=== PATIENT | female | born 1955 | race Asian ===

== ENCOUNTER 2024-03-23 14:45 | Emergency (ER) | payer BC ==
[~2024-03-23] VITALS: Ht 152.4 cm; Wt 48.5 kg
[2024-03-23 14:58] VITALS: BP 141/59; PULSE 60; RESP 18; TEMP 98.5; O2SAT 98
[2024-03-23 16:45] VITALS: BP 135/82; PULSE 66; RESP 16; TEMP 98; O2SAT 99
== END 2024-03-23 16:45 | disposition home or self-care (01) ==
LOC: MED 14:45
DX: S00.03XA Contusion of scalp, initial encounter (principal); W18.39XA Other fall on same level, initial encounter; Y93.89 Activity, other specified; Y92.89 Other specified places as the place of occurrence of the external cause; Y99.8 Other external cause status
CPT/HCPCS: 70450; 70486; 99284

== ENCOUNTER 2024-05-14 07:41 | Emergency (ER) | payer BC ==
[~2024-05-14] VITALS: Ht 154.9 cm; Wt 45.9 kg
[2024-05-14 07:49] VITALS: BP 148/40; PULSE 54; RESP 18; TEMP 97.4; O2SAT 99
[2024-05-14] MEDS: KETOROLAC 30 MG/ML VIAL IM ONE (08:55)
[2024-05-14 09:00] LABS: BASOPHILS % (AUTO) 0.3 % (0.0-2.0); EOSINOPHILS % (AUTO) 0.5 % (0.0-4.0); HEMOGLOBIN 9.7 g/dL (12.0-16.0); LYMPHOCYTES # (AUTO) 0.7 K/uL (2.5-16.5); LYMPHOCYTES % (AUTO) 10.8 % (20.5-51.1); MEAN CORPUSCULAR HEMOGLOBIN 31 pg (27-31); MEAN CORPUSCULAR HGB CONC 33 g/dL (33-37); MEAN CORPUSCULAR VOLUME 96.8 fL (80-94); MONOCYTES # (AUTO) 0.4 K/uL (0.8-1.0); MONOCYTES % (AUTO) 6.9 % (1.7-9.3); NEUTROPHILS % (AUTO) 81.5 % (42.2-75.2); PLATELET COUNT (AUTO) 92 K/uL (140-450); RED CELL DISTRIBUTION WIDTH 15.3 % (11.6-13.7); WHITE BLOOD COUNT (AUTO) 6.1 K/uL (4.8-10.8)
[2024-05-14 09:11] LABS: ANION GAP 14.3 (8-16); CALCIUM 8.7 mg/dL (8.5-10.1); CARBON DIOXIDE 27.2 mmol/L (21-32); CREATININE 1.4 mg/dL (0.6-1.3); POTASSIUM 5.5 mmol/L (3.5-5.1)
[2024-05-14] MEDS ORDERED: [UNRECOGNIZED DRUG - CODE] PO (09:22)
[2024-05-14] MEDS ORDERED: TRAM-748 PO (09:22)
[2024-05-14 09:39] LABS: ALBUMIN 3.4 g/dL (3.4-5.0); BILIRUBIN,DIRECT 0.3 mg/dL (0.0-0.3); TOTAL BILIRUBIN 0.8 mg/dL (0.0-1.0); TOTAL PROTEIN, SERUM 8.2 g/dL (6.4-8.2)
[2024-05-14 09:50] VITALS: BP 148/60; PULSE 58; RESP 16; TEMP 98.1; O2SAT 98
== END 2024-05-14 09:50 | disposition home or self-care (01) ==
LOC: MED 07:41
DX: R10.11 Right upper quadrant pain (principal); K59.00 Constipation, unspecified; E11.9 Type 2 diabetes mellitus without complications; I10 Essential (primary) hypertension; Z85.038 Personal history of other malignant neoplasm of large intestine; Z90.49 Acquired absence of other specified parts of digestive tract; Z79.899 Other long term (current) drug therapy
CPT/HCPCS: 36415; 74018; 80048; 80076; 85025; 96372; 99284; J1885

== ENCOUNTER 2024-06-06 08:16 | Inpatient (IN) | payer BC ==
[~2024-06-06] VITALS: Ht 154.9 cm; Wt 42.8 kg
[~2024-06-06 08:16] MED LIST: TRAM-748 PO; [UNRECOGNIZED DRUG - CODE] PO
[2024-06-06 08:30] VITALS: BP 121/68; PULSE 83; RESP 14; TEMP 98.5; O2SAT 98
[2024-06-06 09:29] LABS: BASOPHILS % (AUTO) 0.1 % (0.0-2.0); HEMATOCRIT 35.2 % (36-48); LYMPHOCYTES # (AUTO) 0.4 K/uL (2.5-16.5); LYMPHOCYTES % (AUTO) 3.1 % (20.5-51.1); MEAN CORPUSCULAR HEMOGLOBIN 30 pg (27-31); MEAN CORPUSCULAR HGB CONC 28 g/dL (33-37); MONOCYTES # (AUTO) 0.6 K/uL (0.8-1.0); MONOCYTES % (AUTO) 4.2 % (1.7-9.3); NEUTROPHILS # (AUTO) 12.4 K/uL (1.8-7.7); NEUTROPHILS % (AUTO) 92.6 % (42.2-75.2); PLATELET COUNT (AUTO) 163 K/uL (140-450); RED BLOOD CELL COUNT(AUTO) 3.33 MIL/uL (4.20-5.40); RED CELL DISTRIBUTION WIDTH 17.3 % (11.6-13.7); WHITE BLOOD COUNT (AUTO) 13.4 K/uL (4.8-10.8)
[2024-06-06 09:44] LABS: INR 1.27 (0.8-1.2); PROTHROMBIN TIME 13.2 secs (10.8-13.4)
[2024-06-06 09:46] LABS: ANION GAP 24.5 (8-16); CARBON DIOXIDE 20.4 mmol/L (21-32); CREATININE 2.8 mg/dL (0.6-1.3); POTASSIUM 4.9 mmol/L (3.5-5.1)
[2024-06-06 09:48] LABS: FLU B ANTIGEN negative (NEGATIVE)
[2024-06-06 09:56] LABS: ALANINE AMINOTRANSFERASE 25 U/L (12-78); ALBUMIN 2.6 g/dL (3.4-5.0); ALKALINE PHOSPHATASE 385 U/L (50-136); ASPARTATE AMINOTRANSFERASE 30 U/L (15-37); BILIRUBIN,DIRECT 0.5 mg/dL (0.0-0.3); LIPASE 44 U/L (16-77); MAGNESIUM 2.9 mg/dL (1.8-2.4); PHOSPHORUS 5.5 mg/dL (2.5-4.9); THYROID STIMULATING HORMONE 0.16 uIU/mL (0.34-3.74); TOTAL BILIRUBIN 0.9 mg/dL (0.0-1.0); TOTAL PROTEIN, SERUM 7.9 g/dL (6.4-8.2)
[2024-06-06 09:58] LABS: BILIRUBIN,URINE NEGATIVE (NEGATIVE); BLOOD, URINE TRACE-I (NEGATIVE); LEUKOCYTE ESTERASE ,URINE NEGATIVE (NEGATIVE); NITRITE, URINE NEGATIVE (NEGATIVE); PROTEIN,URINE TRACE (NEGATIVE); UGLUCOSE 3+ (NEGATIVE); UROBILINOGEN,URINE 0.2 EU/dL (0.2 - 1)
[2024-06-06 10:01] LABS: FLU A ANTIGEN POSITIVE (NEGATIVE)
[2024-06-06 10:02] LABS: APPEARANCE,URINE CLEAR (CLEAR); COLOR,URINE YELLOW (YELLOW)
[2024-06-06] MEDS: NACL 0.9% 1,500 ML IV ONE (10:05)
[2024-06-06 10:23] LABS: BACTERIA,URINE None Seen /HPF (None Seen); RBC,URINE 0-5 /HPF (0-5); SQUAMOUS EPITHELIAL CELL,UR 0-3 (FEW) /LPF (0-3 (FEW)); WBC,URINE 0-5 /HPF (0-5)
[2024-06-06] MEDS: INSULIN REGULAR, HUMAN 100 UNIT/ML VIAL IVP ONE (11:09)
[2024-06-06 11:11] VITALS: O2SAT 98
[2024-06-06 11:16] LABS: BLOOD GAS PCO2 32.6 mmHg (35-45); BLOOD GAS PH 7.328 (7.35-7.45)
[2024-06-06 11:17] LABS: BLOOD GAS BASE EXCESS -8.3 mmol/L (-2.0-2.0); BLOOD GAS HCO3 16.7 mmol/L (22-26); BLOOD GAS O2 SAT% 94.1 % (92.0-98.5); BLOOD GAS PO2 78.3 mmHg (75-100)
[2024-06-06 11:18] LABS: FRACTIONATED INSPIRED OXYGEN 0.21 % (0.21-100.00)
[2024-06-06] MEDS ORDERED: CARV3.122 PO (11:46)
[2024-06-06] MEDS ORDERED: GLIP5TAB22 PO (11:46)
[2024-06-06] MEDS ORDERED: ATOR10TA51 PO (11:46)
[2024-06-06] MEDS ORDERED: ACETAMINOPHEN 325 MG TAB PO PRN (11:55)
[2024-06-06] MEDS ORDERED: ONDANSETRON 4 MG/2 ML VIAL IVP PRN (11:55)
[2024-06-06] MEDS ORDERED: INSULIN LISPRO SLIDING SCALE 100 UNITS/ML VIAL SUBQ PRN (12:00)
[2024-06-06] MEDS: NACL 0.9% 1,000 ML IV SCH (12:22)
[2024-06-06 13:06] LABS: ALBUMIN 2.2 g/dL (3.4-5.0); ANION GAP 19.8 (8-16); CALCIUM 8.3 mg/dL (8.5-10.1); CARBON DIOXIDE 22.7 mmol/L (21-32); CREATININE 2.7 mg/dL (0.6-1.3); POTASSIUM 3.5 mmol/L (3.5-5.1); TOTAL BILIRUBIN 0.7 mg/dL (0.0-1.0); TOTAL PROTEIN, SERUM 6.8 g/dL (6.4-8.2)
[2024-06-06 13:54] VITALS: O2SAT 98
[2024-06-06 16:30] VITALS: O2SAT 97
[2024-06-06] MEDS: BLOOD GLUCOSE MONITORING 1 DEV DEV FS SCH (16:54)
[2024-06-06 17:00] VITALS: PULSE 92; RESP 18; O2SAT 95
[2024-06-06] MEDS: INSULIN LISPRO 100 UNITS/ML VIAL SUBQ SCH (18:24)
[2024-06-07] VITALS (18 sets, daily range): BP systolic 99–144; BP diastolic 53–87; PULSE 71–97; RESP 14–20; TEMP 97.5–98.8; O2SAT 91–98
[2024-06-07] MEDS: BLOOD GLUCOSE MONITORING 1 DEV DEV FS SCH ×2 (01:00→11:17)
[2024-06-07] MEDS ORDERED: INSULIN REGULAR, HUMAN 100 UNIT in NACL 0.9% 100 ML IV SCH (01:10)
[2024-06-07] MEDS: NACL 0.9% 1,000 ML IV SCH (01:39)
[2024-06-07 02:46] LABS: ANION GAP 11.5 (8-16); CALCIUM 8.3 mg/dL (8.5-10.1); CARBON DIOXIDE 30.8 mmol/L (21-32); POTASSIUM 3.3 mmol/L (3.5-5.1)
[2024-06-07] MEDS: DEXT 5% / NACL 0.45% 1,000 ML IV SCH (03:05)
[2024-06-07] MEDS ORDERED: COMMUNICATION ORDER MC PRN (03:44)
[2024-06-07] MEDS: KCL 20 MEQ IN 100 mL PREMIX 200 ML IV ONE ×2 (03:49→04:08)
[2024-06-07] MEDS ORDERED: COMMUNICATION ORDER MC STA (05:58)
[2024-06-07 06:19] LABS: BASOPHILS % (AUTO) 0.1 % (0.0-2.0); EOSINOPHILS % (AUTO) 0.2 % (0.0-4.0); HEMATOCRIT 29.6 % (36-48); HEMOGLOBIN 9.4 g/dL (12.0-16.0); LYMPHOCYTES # (AUTO) 0.3 K/uL (2.5-16.5); LYMPHOCYTES % (AUTO) 2.7 % (20.5-51.1); MEAN CORPUSCULAR HEMOGLOBIN 31 pg (27-31); MEAN CORPUSCULAR HGB CONC 32 g/dL (33-37); MEAN CORPUSCULAR VOLUME 95.5 fL (80-94); MONOCYTES # (AUTO) 0.2 K/uL (0.8-1.0); MONOCYTES % (AUTO) 2.4 % (1.7-9.3); NEUTROPHILS # (AUTO) 9.3 K/uL (1.8-7.7); NEUTROPHILS % (AUTO) 94.6 % (42.2-75.2); PLATELET COUNT (AUTO) 122 K/uL (140-450); RED BLOOD CELL COUNT(AUTO) 3.09 MIL/uL (4.20-5.40); RED CELL DISTRIBUTION WIDTH 16.1 % (11.6-13.7); WHITE BLOOD COUNT (AUTO) 9.8 K/uL (4.8-10.8)
[2024-06-07 06:51] LABS: ANION GAP 12.2 (8-16); CALCIUM 8.3 mg/dL (8.5-10.1); CARBON DIOXIDE 30.3 mmol/L (21-32); POTASSIUM 3.5 mmol/L (3.5-5.1)
[2024-06-07] MEDS ORDERED: INSULIN LANTUS 100 UNITS/ML 10 ML VIAL SUBQ ONE (08:20)
[2024-06-07] MEDS: INSULIN LANTUS 100 UNITS/ML 10 ML VIAL SUBQ ONE (09:09)
[2024-06-07] MEDS: NACL 0.45% 1,000 ML IV SCH (09:10)
[2024-06-07 14:17] LABS: ANION GAP 11.2 (8-16); CALCIUM 8.2 mg/dL (8.5-10.1); CARBON DIOXIDE 27.8 mmol/L (21-32); CREATININE 1.5 mg/dL (0.6-1.3)
[2024-06-07] MEDS: DEXTROSE 50% 50 ML SYR IVP PRN (14:35)
[2024-06-07 20:54] LABS: ANION GAP 11.7 (8-16); CARBON DIOXIDE 24.2 mmol/L (21-32); CREATININE 1.5 mg/dL (0.6-1.3); POTASSIUM 3.9 mmol/L (3.5-5.1)
[2024-06-07] MEDS: INSULIN LANTUS 100 UNITS/ML 10 ML VIAL SUBQ SCH (21:00)
[2024-06-08] VITALS (10 sets, daily range): BP systolic 99–151; BP diastolic 50–108; PULSE 77–116; RESP 10–29; TEMP 97.2–98.4; O2SAT 94–97
[2024-06-08 06:00] LABS: BASOPHILS # (AUTO) 0.1 K/uL (0.00-0.22); BASOPHILS % (AUTO) 1.1 % (0.0-2.0); HEMATOCRIT 27.1 % (36-48); HEMOGLOBIN 8.5 g/dL (12.0-16.0); LYMPHOCYTES # (AUTO) 0.5 K/uL (2.5-16.5); LYMPHOCYTES % (AUTO) 3.7 % (20.5-51.1); MEAN CORPUSCULAR HEMOGLOBIN 30 pg (27-31); MEAN CORPUSCULAR HGB CONC 32 g/dL (33-37); MEAN CORPUSCULAR VOLUME 95.7 fL (80-94); MONOCYTES # (AUTO) 0.5 K/uL (0.8-1.0); MONOCYTES % (AUTO) 4.1 % (1.7-9.3); NEUTROPHILS % (AUTO) 91.1 % (42.2-75.2); PLATELET COUNT (AUTO) 75 K/uL (140-450); RED BLOOD CELL COUNT(AUTO) 2.83 MIL/uL (4.20-5.40); RED CELL DISTRIBUTION WIDTH 15.9 % (11.6-13.7); WHITE BLOOD COUNT (AUTO) 12.1 K/uL (4.8-10.8)
[2024-06-08 06:29] LABS: ANION GAP 8.8 (8-16); CALCIUM 7.7 mg/dL (8.5-10.1); CARBON DIOXIDE 27.8 mmol/L (21-32); CREATININE 1.3 mg/dL (0.6-1.3); POTASSIUM 3.6 mmol/L (3.5-5.1)
[2024-06-08] MEDS ORDERED: VANCOMYCIN PER PHARMACY MC PRN (09:50)
[2024-06-08] MEDS: DEXTROSE 5% 1,000 ML IV SCH (11:04)
[2024-06-08] MEDS: VANCOMYCIN 500 MG in DEXTROSE 5% 100 ML IV SCH (11:21)
[2024-06-08] MEDS: PIPERACILLIN/TAZOBACTAM 2.25 GM in DEXTROSE 5% 50 ML IV SCH (12:41)
[2024-06-08] MEDS ORDERED: PIPERACILLIN/TAZOBACTAM 3.375 GM in DEXTROSE 5% 50 ML IV SCH (13:00)
[2024-06-08] MEDS: OSELTAMIVIR PHOSPHATE 30 MG CAP PO SCH (16:24)
[2024-06-08] MEDS: INSULIN LISPRO SLIDING SCALE 100 UNITS/ML VIAL SUBQ PRN (16:39)
[2024-06-08 20:45] LABS: ANION GAP 14.4 (8-16); CALCIUM 7.2 mg/dL (8.5-10.1); CREATININE 1.4 mg/dL (0.6-1.3); POTASSIUM 3.4 mmol/L (3.5-5.1)
[2024-06-08] MEDS ORDERED: OSELTAMIVIR PHOSPHATE 75 MG CAP PO SCH (21:00)
[2024-06-09] VITALS: PULSE 82
[2024-06-09 04:00] VITALS: BP 99/55; PULSE 89; PULSE 90; RESP 20; TEMP 98.2; O2SAT 96
[2024-06-09 07:03] LABS: HEMATOCRIT 25.1 % (36-48); HEMOGLOBIN 8.2 g/dL (12.0-16.0); MEAN CORPUSCULAR HEMOGLOBIN 30 pg (27-31); MEAN CORPUSCULAR HGB CONC 33 g/dL (33-37); RED CELL DISTRIBUTION WIDTH 15.8 % (11.6-13.7)
[2024-06-09 07:26] LABS: ANION GAP 11.5 (8-16); CREATININE 1.5 mg/dL (0.6-1.3); POTASSIUM 3.5 mmol/L (3.5-5.1)
[2024-06-09 07:32] LABS: PLATELET COUNT (AUTO) 42 K/uL (140-450)
[2024-06-09 07:38] LABS: LYMPHOCYTES % (MANUAL) 5 % (20-46); MONOCYTES % (MANUAL) 5 % (5-12)
[2024-06-09 07:40] LABS: PLATELET ESTIMATE DECREASED
[2024-06-09 08:00] VITALS: BP 120/56; PULSE 74; PULSE 78; RESP 18; TEMP 97.4; O2SAT 95
[2024-06-09] MEDS: NACL 0.45% 1,000 ML IV SCH (10:00)
[2024-06-09 12:00] VITALS: BP 121/49; PULSE 69; PULSE 70; RESP 18; TEMP 97.4; O2SAT 97
[2024-06-09 13:11] LABS: CALCIUM 7.1 mg/dL (8.5-10.1); CARBON DIOXIDE 30.7 mmol/L (21-32); CREATININE 1.5 mg/dL (0.6-1.3); POTASSIUM 3.7 mmol/L (3.5-5.1)
[2024-06-09] MEDS: BUPIVACAINE-MPF 0.25% 30 ML VIAL INJ ONE (13:54)
[2024-06-09] MEDS: LIDOCAINE/EPI 1% 1:100000 20 ML VIAL INJ ONE (13:54)
[2024-06-09 16:00] VITALS: BP 109/59; PULSE 78; PULSE 79; RESP 18; TEMP 98.4; O2SAT 94
[2024-06-09 20:00] VITALS: BP 112/78; PULSE 82; PULSE 87; RESP 17; TEMP 97.8; O2SAT 94
[2024-06-09 21:33] LABS: ANION GAP 12.6 (8-16); CALCIUM 7.1 mg/dL (8.5-10.1); CARBON DIOXIDE 25.2 mmol/L (21-32); CREATININE 1.7 mg/dL (0.6-1.3); POTASSIUM 3.8 mmol/L (3.5-5.1)
[2024-06-10] VITALS: BP 90/70; PULSE 74; PULSE 78; RESP 17; TEMP 97.4; O2SAT 98
[2024-06-10 04:00] VITALS: BP 110/56; PULSE 77; PULSE 82; RESP 17; TEMP 97.2; O2SAT 97
[2024-06-10] MEDS ORDERED: DEXT 5% / NACL 0.9% 500 ML IV SCH (06:45)
[2024-06-10] MEDS: DEXT 5% / NACL 0.9% 1,000 ML IV SCH (06:49)
[2024-06-10 07:11] LABS: HEMATOCRIT 29.6 % (36-48); HEMOGLOBIN 9.3 g/dL (12.0-16.0); LYMPHOCYTES # (AUTO) 0.2 K/uL (2.5-16.5); LYMPHOCYTES % (AUTO) 1.9 % (20.5-51.1); MEAN CORPUSCULAR HEMOGLOBIN 30 pg (27-31); MEAN CORPUSCULAR HGB CONC 32 g/dL (33-37); MEAN CORPUSCULAR VOLUME 94.3 fL (80-94); MONOCYTES # (AUTO) 0.5 K/uL (0.8-1.0); MONOCYTES % (AUTO) 4.3 % (1.7-9.3); NEUTROPHILS # (AUTO) 11.4 K/uL (1.8-7.7); NEUTROPHILS % (AUTO) 93.8 % (42.2-75.2); PLATELET COUNT (AUTO) 57 K/uL (140-450); RED BLOOD CELL COUNT(AUTO) 3.14 MIL/uL (4.20-5.40); WHITE BLOOD COUNT (AUTO) 12.1 K/uL (4.8-10.8)
[2024-06-10 07:36] LABS: CALCIUM 7.1 mg/dL (8.5-10.1); CARBON DIOXIDE 27.3 mmol/L (21-32); CREATININE 1.7 mg/dL (0.6-1.3); POTASSIUM 3.3 mmol/L (3.5-5.1)
[2024-06-10 08:00] VITALS: BP 113/57; PULSE 72; PULSE 75; RESP 18; TEMP 96.9; O2SAT 99
[2024-06-10] MEDS ORDERED: POTASSIUM CHLORIDE 10 MEQ TABER PO SCH (09:41)
[2024-06-10] MEDS: KCL 20 MEQ IN 100 mL PREMIX 100 ML IV SCH ×2 (09:43→15:41)
[2024-06-10] MEDS ORDERED: PROPOFOL 200 MG/20 ML VIAL IV ONE (11:00)
[2024-06-10] MEDS: fentaNYL citrate 0.05 MG/ML VIAL ONE (11:20)
[2024-06-10] MEDS: MIDAZOLAM 2 MG/2 ML VIAL ONE (11:21)
[2024-06-10] MEDS: ceFAZolin 1,000 MG VIAL ONE ×2 (11:42→11:54)
[2024-06-10] MEDS: LIDOCAINE/EPI 1% 1:100000 20 ML VIAL INJ ONE (11:45)
[2024-06-10] MEDS: BUPIVACAINE-MPF 0.25% 30 ML VIAL INJ ONE (11:45)
[2024-06-10] MEDS: ONDANSETRON 4 MG/2 ML VIAL ONE (11:53)
[2024-06-10 12:00] VITALS: BP 113/57; PULSE 72; PULSE 75; RESP 18; TEMP 96.9; O2SAT 99
[2024-06-10] MEDS ORDERED: MORPHINE SULFATE 2 MG/ML SYR IVP PRN (12:15)
[2024-06-10] MEDS ORDERED: HYDROcodone/APAP 5/325 MG 1 TAB TAB PO PRN (12:15)
[2024-06-10 14:23] LABS: BASOPHILS % (AUTO) 0.1 % (0.0-2.0); EOSINOPHILS % (AUTO) 0.3 % (0.0-4.0); HEMATOCRIT 27.6 % (36-48); HEMOGLOBIN 8.4 g/dL (12.0-16.0); LYMPHOCYTES # (AUTO) 0.4 K/uL (2.5-16.5); LYMPHOCYTES % (AUTO) 3.5 % (20.5-51.1); MEAN CORPUSCULAR HEMOGLOBIN 30 pg (27-31); MEAN CORPUSCULAR HGB CONC 30 g/dL (33-37); MEAN CORPUSCULAR VOLUME 98.2 fL (80-94); MONOCYTES # (AUTO) 0.6 K/uL (0.8-1.0); MONOCYTES % (AUTO) 4.9 % (1.7-9.3); NEUTROPHILS # (AUTO) 11.1 K/uL (1.8-7.7); NEUTROPHILS % (AUTO) 91.2 % (42.2-75.2); PLATELET COUNT (AUTO) 70 K/uL (140-450); RED BLOOD CELL COUNT(AUTO) 2.82 MIL/uL (4.20-5.40); RED CELL DISTRIBUTION WIDTH 17.2 % (11.6-13.7); WHITE BLOOD COUNT (AUTO) 12.2 K/uL (4.8-10.8)
[2024-06-10 16:00] VITALS: BP 112/61; PULSE 72; PULSE 88; RESP 18; TEMP 97; O2SAT 99
[2024-06-10 20:00] VITALS: BP 91/53; PULSE 118; RESP 18; TEMP 98; O2SAT 94
[2024-06-11] VITALS: BP 92/53; PULSE 95; RESP 18; TEMP 97; O2SAT 96
[2024-06-11 04:00] VITALS: BP 126/57; PULSE 81; RESP 18; TEMP 97.8; O2SAT 96
[2024-06-11 07:24] LABS: BASOPHILS % (AUTO) 0.1 % (0.0-2.0); HEMATOCRIT 24.5 % (36-48); HEMOGLOBIN 7.9 g/dL (12.0-16.0); LYMPHOCYTES # (AUTO) 0.2 K/uL (2.5-16.5); MEAN CORPUSCULAR HEMOGLOBIN 30 pg (27-31); MEAN CORPUSCULAR HGB CONC 32 g/dL (33-37); MEAN CORPUSCULAR VOLUME 93.5 fL (80-94); MONOCYTES # (AUTO) 0.4 K/uL (0.8-1.0); MONOCYTES % (AUTO) 4.1 % (1.7-9.3); NEUTROPHILS # (AUTO) 9.7 K/uL (1.8-7.7); NEUTROPHILS % (AUTO) 93.8 % (42.2-75.2); PLATELET COUNT (AUTO) 58 K/uL (140-450); RED BLOOD CELL COUNT(AUTO) 2.62 MIL/uL (4.20-5.40); RED CELL DISTRIBUTION WIDTH 16.2 % (11.6-13.7); WHITE BLOOD COUNT (AUTO) 10.4 K/uL (4.8-10.8)
[2024-06-11 07:47] LABS: ANION GAP 11.6 (8-16); CALCIUM 6.9 mg/dL (8.5-10.1); CARBON DIOXIDE 24.8 mmol/L (21-32); CREATININE 1.9 mg/dL (0.6-1.3); POTASSIUM 3.4 mmol/L (3.5-5.1)
[2024-06-11 08:00] VITALS: PULSE 84; RESP 18; TEMP 97.1; O2SAT 95
[2024-06-11 12:00] VITALS: BP 126/57; PULSE 81; RESP 18; TEMP 206.8; O2SAT 95
[2024-06-11] MEDS: NACL 0.9% 1,000 ML IV SCH (14:43)
[2024-06-11 20:00] VITALS: BP 101/58; PULSE 91; RESP 18; TEMP 98.1; O2SAT 95
[2024-06-12 04:00] VITALS: BP 110/54; PULSE 91; RESP 18; TEMP 96.5; O2SAT 96
[2024-06-12 07:38] LABS: ANION GAP 14.2 (8-16); BASOPHILS % (AUTO) 0.1 % (0.0-2.0); CALCIUM 7.1 mg/dL (8.5-10.1); CARBON DIOXIDE 21.9 mmol/L (21-32); CREATININE 1.8 mg/dL (0.6-1.3); EOSINOPHILS % (AUTO) 0.2 % (0.0-4.0); HEMATOCRIT 25.9 % (36-48); HEMOGLOBIN 8.3 g/dL (12.0-16.0); LYMPHOCYTES # (AUTO) 0.4 K/uL (2.5-16.5); LYMPHOCYTES % (AUTO) 3.8 % (20.5-51.1); MEAN CORPUSCULAR HEMOGLOBIN 30 pg (27-31); MEAN CORPUSCULAR HGB CONC 32 g/dL (33-37); MEAN CORPUSCULAR VOLUME 93.7 fL (80-94); MONOCYTES # (AUTO) 0.9 K/uL (0.8-1.0); MONOCYTES % (AUTO) 8.5 % (1.7-9.3); NEUTROPHILS # (AUTO) 9.6 K/uL (1.8-7.7); NEUTROPHILS % (AUTO) 87.4 % (42.2-75.2); PLATELET COUNT (AUTO) 69 K/uL (140-450); POTASSIUM 3.1 mmol/L (3.5-5.1); RED BLOOD CELL COUNT(AUTO) 2.76 MIL/uL (4.20-5.40); RED CELL DISTRIBUTION WIDTH 16.4 % (11.6-13.7)
[2024-06-12 08:00] VITALS: PULSE 91; RESP 16; TEMP 97.8; O2SAT 95
[2024-06-12] MEDS: POTASSIUM CHLORIDE 10 MEQ TABER PO SCH (10:19)
[2024-06-12 12:00] VITALS: BP 110/54; PULSE 91; RESP 16; TEMP 208; O2SAT 95
[2024-06-12 16:42] VITALS: BP 106/50; PULSE 104; RESP 18; TEMP 99.3; O2SAT 94
[2024-06-12 20:00] VITALS: PULSE 84; RESP 18; TEMP 97.5; O2SAT 95
[2024-06-13 04:00] VITALS: BP 107/63; PULSE 80; RESP 18; TEMP 97.4; O2SAT 94
[2024-06-13 07:10] LABS: BASOPHILS % (AUTO) 0.2 % (0.0-2.0); EOSINOPHILS % (AUTO) 0.2 % (0.0-4.0); HEMATOCRIT 28.2 % (36-48); HEMOGLOBIN 8.7 g/dL (12.0-16.0); LYMPHOCYTES # (AUTO) 0.9 K/uL (2.5-16.5); MEAN CORPUSCULAR HEMOGLOBIN 30 pg (27-31); MEAN CORPUSCULAR HGB CONC 31 g/dL (33-37); MEAN CORPUSCULAR VOLUME 95.7 fL (80-94); MONOCYTES # (AUTO) 0.8 K/uL (0.8-1.0); MONOCYTES % (AUTO) 7.3 % (1.7-9.3); NEUTROPHILS # (AUTO) 9.1 K/uL (1.8-7.7); NEUTROPHILS % (AUTO) 84.3 % (42.2-75.2); PLATELET COUNT (AUTO) 75 K/uL (140-450); RED BLOOD CELL COUNT(AUTO) 2.95 MIL/uL (4.20-5.40); RED CELL DISTRIBUTION WIDTH 16.7 % (11.6-13.7); WHITE BLOOD COUNT (AUTO) 10.7 K/uL (4.8-10.8)
[2024-06-13 07:12] LABS: ANION GAP 14.7 (8-16); CARBON DIOXIDE 18.7 mmol/L (21-32); CREATININE 1.7 mg/dL (0.6-1.3); POTASSIUM 4.4 mmol/L (3.5-5.1)
[2024-06-13] MEDS ORDERED: AMOX-999 PO (11:25)
[2024-06-13 11:31] VITALS: PULSE 83; RESP 18; TEMP 98.7; O2SAT 95
[2024-06-13 12:48] VITALS: BP 107/63; PULSE 83; RESP 18; TEMP 98.7
== END 2024-06-13 16:55 | disposition home or self-care (01) | DRG 314 ==
LOC: MED 08:16 → MTU 11:56 → MIC 06-07 00:48 → MTU 06-08 19:23
PROVIDERS: ADMIT Student in an Organized Health Care Education/Training Program; ATTEND Student in an Organized Health Care Education/Training Program
PROC: 02PY33Z Removal of Infusion Device from Great Vessel, Percutaneous Approach (ICD-10-PCS; 2024-06-10)
PROC: 0JPT0WZ Removal of Totally Implantable Vascular Access Device from Trunk Subcutaneous Tissue and Fascia, Open Approach (ICD-10-PCS; 2024-06-10)
PROC: 30233N1 Transfusion of Nonautologous Red Blood Cells into Peripheral Vein, Percutaneous Approach (ICD-10-PCS; principal; 2024-06-10 10:30)
DX: T80.218A Other infection due to central venous catheter, initial encounter (principal); A41.9 Sepsis, unspecified organism; E43 Unspecified severe protein-calorie malnutrition; E11.10 Type 2 diabetes mellitus with ketoacidosis without coma; Z68.1 Body mass index [BMI] 19.9 or less, adult; N17.9 Acute kidney failure, unspecified; E87.0 Hyperosmolality and hypernatremia; N39.0 Urinary tract infection, site not specified; C18.9 Malignant neoplasm of colon, unspecified; Z20.822 Contact with and (suspected) exposure to COVID-19; E11.22 Type 2 diabetes mellitus with diabetic chronic kidney disease; I12.9 Hypertensive chronic kidney disease with stage 1 through stage 4 chronic kidney disease, or unspecified chronic kidney disease; N18.9 Chronic kidney disease, unspecified; D63.1 Anemia in chronic kidney disease; J10.1 Influenza due to other identified influenza virus with other respiratory manifestations; Y83.8 Other surgical procedures as the cause of abnormal reaction of the patient, or of later complication, without mention of misadventure at the time of the procedure; Z79.899 Other long term (current) drug therapy; Z79.4 Long term (current) use of insulin
CPT/HCPCS: 36415; 70450; 71045; 80048; 80053; 80076; 81001; 82948; 83036; 83605; 83690; 83735; 84100; 84439; 84443; 84484; 85025; 85610; 86886; 86900; 86901; 86920; 87040; 87070; 87075; 87081; 87086; 87186; 87205; 93005; 96361; 96374; 97110; 97116; 97163-GP; 97530; 99291; J0690; J0696; J1815; J2001; J2250; J2405; J2543; J2704; J3010; J3370; J3480; J3490; J7060; P9035; Q0092